=== PATIENT | male | born 1965 | race African-American/Black ===

== ENCOUNTER 2019-04-10 21:15 | Emergency (ER) | payer MEDICAID, OTHER ==
[~2019-04-10] VITALS: Ht 175.3 cm; Wt 85.0 kg
[2019-04-10] MEDS ORDERED: CEFAZOLIN 1000MG PREMIX 50 ML IV ONE ×2 (21:45→23:00)
[2019-04-10] MEDS ORDERED: TETANUS, DIPHTHERIA, PERTUSSIS VAC/PF 0.5ML (>7YR OLD) IM ONE (21:45)
[2019-04-10] MEDS ORDERED: MORPHINE SULFATE 4 MG/ML CPJ (NOT FOR IM USE) IV ONE (23:00)
[2019-04-10 23:02] LABS: BASOPHILS % 1.2 % (0.0-2.0); EOSINOPHILS % 0.2 % (0.0-5.0); HEMATOCRIT. 41.4 % (42.0-52.0); LYMPHOCYTES % 23.2 % (20.0-50.0); MEAN CORPUSCULAR VOLUME 97.8 fL (80.0-94.0); MEAN PLATELET VOLUME 8.1 fl (7.4-10.4); MONOCYTES % 7.6 % (2.0-8.0); NEUTROPHILS % 67.8 % (40.0-76.0); PLATELET 246 x1000/uL (130-400); RED BLOOD CELL COUNT 4.23 mill/uL (4.7-6.1); RED CELL DISTRIBUTION WIDTH 12.8 % (11.6-14.6)
[2019-04-10 23:07] LABS: CHLORIDE 100 mEq/L (98-107)
[2019-04-11 00:02] VITALS: BP 172/102
== END 2019-04-11 00:23 | disposition short-term general hospital (02) ==
LOC: ER 21:15
DX: S62.301B Unspecified fracture of second metacarpal bone, left hand, initial encounter for open fracture (principal); S62.303B Unspecified fracture of third metacarpal bone, left hand, initial encounter for open fracture; E11.9 Type 2 diabetes mellitus without complications; I10 Essential (primary) hypertension; W33.01XA Accidental discharge of shotgun, initial encounter; Y93.89 Activity, other specified; Y92.89 Other specified places as the place of occurrence of the external cause; Y99.8 Other external cause status
CPT/HCPCS: 36415; 73130; 80053; 85025; 90471; 90715; 96365; 99285; J0690; J2270